=== PATIENT | female | born 2000 | race Caucasian/White ===

== ENCOUNTER 2023-09-02 01:38 | Observation (INO) | payer MEDICAID, SELFPAY ==
--- NOTE | 2023-09-02 02:08 | OBADM ---
This patient, Kayla Yu, admitted to the OB room Labor/Delivery/Recovery 106 for observation. Patient/family oriented to hospital policies and general routines including ID bracelet, bed and alarms, visiting hours, pain management, procedures, bathroom and other care routines, personal items, smoking policy, room service/diet, and visiting hours. Patient/Family are encouraged to report perceived risks to care and to ask questions if they do not understand what they are told or what they should do.
[2023-09-02 02:47] VITALS: BMI 36.3
[2023-09-02 02:48] VITALS: BP 130/81
[2023-09-02 02:51] VITALS: BP 130/81; PULSE 104
--- NOTE | 2023-09-04 14:06 | PM.OBTRLD ---
OB - Triage/Final Diagnosis Visit Information Date of evaluation: 09/02/23 Reason for evaluation: decreased movement Comments/Additional reasons for admission: I have assessed the risk for this patient, Kayla Yu, and determined that she would benefit from observation care.
== END 2023-09-02 02:54 | disposition home or self-care (01) ==
PROVIDERS: Admitting Provider Obstetrics & Gynecology; Visit Provider Obstetrics & Gynecology
DX: O36.8130 Decreased fetal movements, third trimester, not applicable or unspecified (principal); Z3A.32 32 weeks gestation of pregnancy
CPT/HCPCS: 59025; G0378; G0379

== ENCOUNTER 2023-09-05 14:44 | Observation (INO) | payer MEDICAID, SELFPAY ==
[2023-09-05] VITALS (9 sets, daily range): BP systolic 113–117; BP diastolic 64–67; PULSE 87–108; RESP 20; TEMP 36.8; O2SAT 99–100; BMI 41.3
--- NOTE | 2023-09-05 15:20 | OBADM ---
This patient, Kayla Yu, admitted to the OB room 116 for observation. Patient/family oriented to hospital policies and general routines including ID bracelet, bed and alarms, visiting hours, pain management, procedures, bathroom and other care routines, personal items, smoking policy, room service/diet, and visiting hours. Patient/Family are encouraged to report perceived risks to care and to ask questions if they do not understand what they are told or what they should do.
[2023-09-05 15:39] LABS: Appearance Urine Clear (Clear); Bilirubin Urine Negative (Negative); Blood Urine Negative (Negative); Color Urine Yellow (Yellow); Glucose Urine UA Negative (Negative); Ketones Urine Negative (Negative); Leukocyte Esterase Ur Negative LEU/UL (Negative); Nitrate Urine Negative (Negative); Protein Urine Negative (Negative); Urobilinogen Urine 0.2 mg/dL (<2.0); pH Urine 6.5 (5.0-9.0)
[2023-09-05 15:42] LABS: Add Urine Microscopic? NO
--- NOTE | 2023-09-08 10:02 | P.PNOB_ITS ---
OB - Triage/Final Diagnosis Visit Information Date of evaluation: 09/04/23 Reason for evaluation: threatened labor Comments/Additional reasons for admission: I have assessed the risk for this patient, Kayla Yu, and determined that she would benefit from observation care. Evaluation Laboratory results: Laboratory Tests 09/05/23 15:26 Urine Color Yellow Urine Appearance Clear Urine pH 6.5 Ur Specific [place] 1.010 Urine Protein Negative Urine Glucose (UA) Negative Urine Ketones Negative Ur Blood (Man) Negative Urine Nitrate Negative Urine Bilirubin Negative Urine Urobilinogen 0.2 Leukocyte Esterase Rfl Negative
== END 2023-09-05 16:31 | disposition home or self-care (01) ==
PROVIDERS: Admitting Provider Student in an Organized Health Care Education/Training Program; Visit Provider Student in an Organized Health Care Education/Training Program
DX: O47.9 False labor, unspecified (principal); Z3A.33 33 weeks gestation of pregnancy
CPT/HCPCS: 81003; 84112; G0378; G0379

== ENCOUNTER 2023-09-13 12:41 | Outpatient (CLI) | payer MEDICAID, SELFPAY ==
--- NOTE | ~2023-09-13 | US_ITS ---
EXAMINATION: US OB follow up DATE: 09/13/2023 13:11 INDICATION: Encounter for supervision of normal . Assess growth and amniotic fluid ind ex. TECHNIQUE: Real-time ultrasound of the pelvis was performed. The interpreting radiologist was not pre sent for the study. COMPARISON: None. FINDINGS: There is a single living fetus in vertex presentation. The placenta is posterior and not low-lying. The regions of the cervix is obscured by the skull. heart rate is 134 beats per minute (b pm). The amniotic fluid index is 12.8 cm, which is normal (5th%-95%: 8.1-24.8 cm at 34 weeks estimat ed gestational age). The following biometric data were obtained: BPD: 8.4 cm -> 34 weeks 0 days Head circumference: 31.1 cm -> 34 weeks 5 days Abdominal circumference: 30.1 cm -> 34 weeks 1 days Femur length: 6.6 cm -> 34 weeks 1 days These measurements are concordant. Head circumference to abdominal circumference ratio: 1.03 (normal range 0.94-1.11). Estimated weight: 2368 g (+/-) 355 g or 5 lbs. 4 oz. (+/-) 13 oz. IMPRESSION: 1. Single living fetus in vertex presentation with heart rate of 134 bpm. 2. Gestational age by ultrasound of 34 weeks 2 day(s) +/- 2 week(s) 3 day(s) with ultrasound estimate d date of delivery (VARSHA) of 10/23/2023. Estimated weight is 37th percentile by Hadlock criteria when 10/22/2023 is used as the VARSHA. Please correlate with clinical information or earlier ultrasounds for most accurate VARSHA. 3. Normal amniotic fluid index of 12.8 cm. Reviewed, dictated and finalized at location B. IMPRESSION: 1. Single living fetus in vertex presentation with heart rate of 134 bpm. 2. Gestational age by ultrasound of 34 weeks 2 day(s) +/- 2 week(s) 3 day(s) wi th ultrasound estimated date of delivery (VARSHA) of 10/23/2023. Estimated we ight is 37th percentile by Hadlock criteria when 10/22/2023 is used as the VARSHA. Please correlate with clinical information or earlier ultrasounds for most accu rate VARSHA. 3. Normal amniotic fluid index of 12.8 cm.
== END 2023-09-13 12:42 ==
LOC: MICIMG 12:42
PROVIDERS: PCP Student in an Organized Health Care Education/Training Program; Visit Provider Student in an Organized Health Care Education/Training Program
DX: Z34.93 Encounter for supervision of normal pregnancy, unspecified, third trimester (principal); Z3A.34 34 weeks gestation of pregnancy
CPT/HCPCS: 76816

== ENCOUNTER 2023-10-13 17:08 | Outpatient (CLI) | payer OTHER, SELFPAY ==
[2023-10-13 17:52] VITALS: BP 122/73; PULSE 100
== END 2023-10-13 18:00 ==
LOC: ANHOBOP 17:58
PROVIDERS: Visit Provider Student in an Organized Health Care Education/Training Program
DX: O42.90 Premature rupture of membranes, unspecified as to length of time between rupture and onset of labor, unspecified weeks of gestation (principal); Z3A.00 Weeks of gestation of pregnancy not specified
CPT/HCPCS: 59025; 84112

== ENCOUNTER 2023-10-18 06:13 | Inpatient (IN) | payer OTHER, SELFPAY ==
[2023-10-18] VITALS (57 sets, daily range): BP systolic 85–139; BP diastolic 34–118; PULSE 74–160; RESP 16–20; TEMP 36.3–37.7; O2SAT 92–100; BMI 41.8
--- NOTE | 2023-10-18 07:00 | LDADM ---
This patient, Kayla Yu, was admitted to Labor/Delivery/Recovery 107 on 10/18/23 at 06:13. Plans for labor, pain management and were discussed with patient. Patient/family oriented to hospital policies and general routines including ID bracelet, bed and alarms, visiting hours, pain management, procedures, bathroom and other care routines, personal items, smoking policy, room service/diet and guest tray routines, infant security routines, and visiting hours. Patient/Family are encouraged to report perceived risks to care and to ask questions if they do not understand what they are told or what they should do. See OBIX for further documentation.
[2023-10-18 07:03] LABS: Basophils Absolute Auto 0.1 K/mm3 (0.0-0.1); Basophils Percent Auto 0.4 % (0.2-1.2); Eosinophils Absolute Auto 0.3 K/mm3 (0-0.3); Eosinophils Percent Auto 2.9 % (0-4.4); Hematocrit 32.3 % (37.0-47.0); Hemoglobin 10.6 g/dL (12.0-15.0); Immature Granulocyte Absolute 0.12 K/mm3 (0.00-0.031); Lymphocytes Absolute Auto 2.27 K/mm3 (0.9-3.2); Lymphocytes Percent Auto 19.4 % (18.3-44.2); Mean Corpuscular HGB Conc 32.8 g/dl (32-36); Mean Corpuscular Hemoglobin 28.6 pg (26-34); Mean Corpuscular Volume 87.1 fl (80-100); Mean Platelet Volume 9.6 fl (7.4-10.4); Monocytes Absolute Auto 0.7 K/mm3 (0.1-0.6); Monocytes Percent Auto 6.3 % (2.6-8.5); Neutrophils Absolute Auto 8.2 K/mm3 (1.3-6.7); Platelet Count Result 315 k/mm3 (150-375); Red Blood Count 3.71 M/mm3 (4.2-5.4); Red Cell Distribution Width 13.5 % (11.5-14.5); White Blood Count 11.7 K/mm3 (4.5-10.0)
[2023-10-18] MEDS: LACTATED RINGERS 1,000 ML 125 ML IV CONT ×2 (07:32→09:30)
[2023-10-18] MEDS: OXYTOCIN 30 UNITS/NS 500 ML 30 UNITS/500 ML BAG IV CONT (07:33)
--- NOTE | 2023-10-18 07:34 | P.HPUP_ITS ---
History and Physical Update Update Date/Time: 10/18/23 07:34 History and Physical has been reviewed, including an updated exam of the patient. There are NO changes in the patient's condition. Risks, benefits, and alternatives have been discussed and questions answered. Patient agrees to proceed with procedure. A/P: -Transfer of care at 33w from [place] -Bipolar disorder- no meds -Asthma- moderate- albuterol/budesonide -Cardiac palpitations- pt had EKG/cardiology consult done prior to transfer, records reveiwed -h/o 34w delivery 2/2 PPROM admit to L&D routine admission orders Rh + GBS neg continuous EFM plan for AROM and pitocin
--- NOTE | 2023-10-18 08:50 | WPDANESEPP ---
Anes - Eval Pre Procedure Procedure: Labor epidural Date/Time: 10/18/23 08:50 Surgeon: Caesar Preop Diagnosis: Pain during labor Pre Op Diagnosis: Induction of Labor Patient Data Age: 22 Gender: F Height: 1.52 m Weight: 97 kg Last Vital Signs Temp 36.3 C L 10/18/23 07:30 Pulse 102 H 10/18/23 08:15 BP 139/74 10/18/23 08:15 O2 Del Method Room Air 10/18/23 07:00 Allergies Allergy/AdvReac Type Severity Reaction Status Date / Time amoxicillin Allergy Severe Anaphylactic Verified 10/12/23 10:16 Shock risperidone [From Risperdal] Allergy Mild Hives Verified 10/12/23 10:16 varenicline [From Chantix] AdvReac Other Verified 10/12/23 10:16 Home Medications Medication Instructions Recorded Confirmed Type albuterol 90 mcg-budesonide 80 2 inh inhalation TID PRN Shortness 09/03/23 10/12/23 History mcg/actuation HFA aerosol inhaler Of Breath ferrous sulfate 325 mg (65 mg 325 mg PO DAILY 09/03/23 10/12/23 History iron) tablet vits no.126-ferrous fum 1 tablet PO DAILY 09/03/23 10/12/23 History 28 mg iron-folic acid 800 mcg tablet (Classic ) albuterol sulfate 90 mcg/actuation 1 inh inhalation Q4H 09/06/23 10/12/23 History aerosol inhaler (ProAir HFA) cetirizine 10 mg capsule (Zyrtec) 10 mg PO DAILY PRN Wheezing 09/06/23 10/12/23 History Laboratory Tests 10/18/23 06:41 WBC 11.7 H K/mm3 (4.5-10.0) RBC 3.71 L M/mm3 (4.2-5.4) Hgb 10.6 L g/dL (12.0-15.0) Hct 32.3 L % (37.0-47.0) MCV 87.1 fl (80-100) MCH 28.6 pg (26-34) MCHC 32.8 g/dl (32-36) RDW 13.5 % (11.5-14.5) Plt Count 315 k/mm3 (150-375) MPV 9.6 fl (7.4-10.4) Immature Gran % (Auto) 1.0 H % (0-0.5) Neut % (Auto) 70.0 % (45.5-73.1) Lymph % (Auto) 19.4 % (18.3-44.2) [place] % (Auto) 6.3 % (2.6-8.5) Eos % (Auto) 2.9 % (0-4.4) Baso % (Auto) 0.4 % (0.2-1.2) Lymph # (Auto) 2.27 K/mm3 (0.9-3.2) [place] # (Auto) 0.7 H K/mm3 (0.1-0.6) Eos # (Auto) 0.3 K/mm3 (0-0.3) Baso # (Auto) 0.1 K/mm3 (0.0-0.1) Abs Immat Gran (auto) 0.12 H K/mm3 (0.00-0.031) Absolute Neuts (auto) 8.2 H K/mm3 (1.3-6.7) Absolute Nucleated RBC 0.000 K/mm3 (0.0-0.012) Nucleated RBC % 0.0 % (0.0-0.2) RPR Pending Blood Type A Positive Antibody Screen Pending Patient hx anesthesia problems: none Family hx anesthesia problems: none Results Review: All pre-operative results and documents have been reviewed as part of the pre-operative evaluation. [facility] Past Medical History Medical History Asthma Prior with demise PTSD (post-traumatic stress disorder) Surgical History Surgical History H/O abdominal surgery H/O: knee surgery Family History Family History Father Bladder cancer Heart disease Sibling Kidney disease Social History Social History Smoking status: Current some day smoker Smokeless tobacco user: other Second hand tobacco smoke exposure: Yes Alcohol intake: never Substance use: current Do You Feel Safe in your Home?: Yes Lack of Transportation: No Lack of Food: Never True Current Housing: I Have Housing Concerned About Future Housing: No Difficulty Paying Gas/Electric Bills: No Difficulty Paying for Meds: No Currently Unemployed: No Education: High School Diploma/GED Difficulty w/ Childcare or Family Care: No Living arrangements: with family Occupation/Education: unemployed Gender identity (if verbalized by the patient): Female Sexual Orientation (if Verbalized by the Patient): Straight or Heterosexual Spiritual care concerns: No Exam Day of Procedure 10/18/23 08:50 Pat
[2023-10-18] MEDS: miSOPROStol 200 MCG TABLET 1000 MCG (10:00)
[2023-10-18] MEDS: OXYTOCIN 30 UNITS/NS 500 ML 30 UNITS/500 ML BAG 125 UNITS IV CONT (10:21)
[2023-10-18] MEDS: METHYLERGONOVINE MALEATE 0.2 MG/ML VIAL IM (10:40)
--- NOTE | 2023-10-18 11:12 | P.PCNOB_ITS ---
OB - Vaginal Delivery Note Procedure Delivery date: 10/18/23 Induction method: Per Pitocin Protocol Delivery augmentation: Rupture of Membranes Delivery monitor: External FHT and External Uterine Route of delivery: Episiotomy description: None Laceration Description: Perineal - 2nd Degree and Superficial Delivery repair: vicryl Specimen: No Quantitative Blood Loss (ml): 300 Anesthesia type: Epidural Disposition: Floor Complications: No immediate complications Narrative: Patient pushed for a spontaneous vaginal delivery. A nuchal x 1 was noted and delivered through. The fetus was delivered atraumatically and placed on the maternal abdomen. The cord was clamped and cut after 1 minute of life. The cord was double clamped and cut and a segment of cord was collected for cord gases. Cord blood was collected for blood type and Coomb's testing. The placenta delivered spontaneously and was noted to be intact. The perineum was inspected and a second degree perineal laceration was noted. The laceration was repaired wiht 3-0 vicryl in a running fashion. There was a small amount of brisk bleeding after delivery. Pt was given 1000 mcg of cytotec [place]. [place] Baby Date of : 10/18/23 Weeks of gestation at delivery: 39 Infant gender: Male presentation: vertex position: Right Occiput Anterior Placenta delivery description: Spontaneous Cord Vessel Description: 3 Vessels and Nuchal Cord score one minute: 8 score five minutes: 9
[2023-10-18] MEDS: COSYNTROPIN 0.25 MG/ML VIAL 1 MG IV PUSH (11:34)
[2023-10-18] MEDS: BENZOCAINE 20% AER SPR (*SP) 56 GM CAN 1 SPRAY TOPICAL (13:00)
[2023-10-18] MEDS: WITCH HAZEL 40 PADS 1 PAD TOPICAL (13:00)
--- NOTE | 2023-10-18 13:40 | OBPPTRN ---
1311-Patient transferred to post room #291 via wheelchair. Support person present. Oriented to unit, room, information board, rooming in, admission packet and security measures. Patient verbalizes understanding.
[2023-10-18] MEDS: IBUPROFEN 600 MG TABLET PO (14:23)
[2023-10-18 16:45] LABS: Rapid Plasma Reagin Non-Reactive (NonReactive)
--- NOTE | 2023-10-18 18:24 | WPDANESPN ---
Anes - Prog Note Post-Op Date/Time: 10/18/23 18:24 Cardiovascular status: normal Respiratory status: normal Airway patency: baseline Mental status: baseline Post-Op hydration status: normal Vital Signs: Last Vital Signs Temp 37.7 C H 10/18/23 13:15 Pulse 97 10/18/23 13:15 Resp 16 10/18/23 13:15 BP 123/62 10/18/23 13:15 Pulse Ox 100 10/18/23 13:15 O2 Del Method Room Air 10/18/23 07:00 Pain Score (VAS): Called to assess patient for spinal NEGRO after wet tap during epidural placement. When entering pt room all lights on and pt sitting straight up in bed chatting on phone, holding baby. I asked pt to describe her NEGRO. Pt stated that NEGRO was pretty bad but not as bad as it was early in the afternoon, mostly right frontal radiating to the base of her skull. Pt is eating and drinking well. Smiling and talkative. Discussed plan to treat her NEGRO conservatively overnight, and reassess in the morning. Pt was given Cosyntropin at 1134. Pt agreed with the plan. We will assess her status in the morning. DJP aware. I/O: Intake & Output 10/18/23 10/18/23 10/18/23 07:59 15:59 23:59 Intake Total 245.8 Output Total 850 Balance -604.2 Laboratory Tests 10/18/23 06:41 10/18/23 06:41 WBC 11.7 H RBC 3.71 L Hgb 10.6 L Hct 32.3 L MCV 87.1 MCH 28.6 MCHC 32.8 RDW 13.5 Plt Count 315 MPV 9.6 Immature Gran % (Auto) 1.0 H Neut % (Auto) 70.0 Lymph % (Auto) 19.4 [place] % (Auto) 6.3 Eos % (Auto) 2.9 Baso % (Auto) 0.4 Lymph # (Auto) 2.27 [place] # (Auto) 0.7 H Eos # (Auto) 0.3 Baso # (Auto) 0.1 Abs Immat Gran (auto) 0.12 H Absolute Neuts (auto) 8.2 H Absolute Nucleated RBC 0.000 Nucleated RBC % 0.0 RPR Non-reactive Blood Type A Positive Antibody Screen Negative Patient Feedback: Patient satisfied with anesthetic care.
[2023-10-19 04:10] LABS: Hematocrit 27.6 % (37.0-47.0); Hemoglobin 8.8 g/dL (12.0-15.0)
[2023-10-19] MEDS: IBUPROFEN 600 MG TABLET PO (04:15)
[2023-10-19 07:40] VITALS: BP 108/74; PULSE 92; RESP 18; TEMP 36.6; O2SAT 99
--- NOTE | 2023-10-19 07:45 | PM.OBDSVD ---
DS: Admitting Diagnosis Discharge Date 10/19/23 Admitting Diagnosis intrauterine at term DS: Discharge Diagnosis Discharge Diagnosis (1) Normal vaginal delivery: Code(s): O80 - Encounter for full-term uncomplicated delivery Status: Acute OB - DS: Summary OB Procedures : None OB Procedures Intrapartum: Spontaneous Vag Delivery OB Procedures: : None Peripartum Data Laceration Description: Perineal - 2nd Degree and Superficial Episiotomy description: None Status at Discharge Functional status at discharge: independent ambulation Overall status at discharge: patient is back to baseline Time Spent with Patient Time attestation: Total time spent providing and/or coordinating discharge services: Time spent: Less than 30 minutes Exam Const: General: comfortable and no acute distress Resp: Effort & Inspection: normal respiratory effort Auscultation: clear to auscultation bilaterally Cardio: Rate: regular rate GI: GI Palp: Yes Soft to palpation Auscultation: normal bowel sounds Other: Fundus firm below umbilicus Psych: Appearance: grossly normal Mental Status: mental status grossly normal Affect: normal affect DS: Data Data Completed and Pending Labs on day of discharge: Labs from last 24 hours 10/19/23 10/18/23 04:03 06:41 Hgb 8.8 L Hct 27.6 L RPR Non-reactive Blood Type A Positive Antibody Screen Negative Discharge Plan Discharge Discharging Clinician: Christiano Maynard Patient Disposition: Home, Self-Care Activity: as tolerated and pelvic rest Diet: regular Patient Instructions: Antibiotic Form, Vaginal Delivery (DC) Stand Alone Forms: General Discharge Information Follow-up/Referrals: Christiano Maynard MD [Physician] - 4 Weeks Discharge Medications: Continued ferrous sulfate 325 mg (65 mg iron) tablet 325 mg PO DAILY Classic 28 mg iron- 800 mcg tablet 1 tablet PO DAILY albuterol-budesonide 90-80 mcg/actuation HFA aerosol inhaler 2 inh inhalation TID PRN (Reason: Shortness Of Breath) Zyrtec 10 mg capsule 10 mg PO DAILY PRN (Reason: Wheezing) albuterol sulfate [ProAir HFA] 90 mcg/actuation HFA aerosol inhaler 1 inh inhalation Q4H Date of admission: 10/18/23 06:13 Primary Care Provider: 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
[2023-10-19] MEDS: POLYSACCHARIDE IRON COMPLEX 150 MG CAPSULE PO (08:59)
[2023-10-19] MEDS: DOCUSATE SODIUM 100 MG CAPSULE PO (08:59)
[2023-10-19] MEDS: MULTIVIT/MIN/PREN/FOL AC/IRON TABLET 1 TAB PO (08:59)
[2023-10-19] MEDS: ACETAMINOPHEN/BUTALBITAL/CAFFEINE 325-50-40 MG TABLET (FIORICET) PO ×2 (09:00→13:15)
--- NOTE | 2023-10-19 09:09 | WPDANLDPN2 ---
Anes-Prog Note L&D Date/Time: 10/19/23 09:09 Comfortable throughout: labor and delivery Neuraxial method: epidural Epidural/Spinal procedure site: clean & non-tender (removed epidural catheter. ) Neuro status: Neuro function grossly intact. Cardiovascular status: normal Respiratory status: normal Airway patency: baseline Mental status: baseline Post-Op hydration status: normal Vital Signs: Last Vital Signs Temp 36.6 C 10/19/23 07:40 Pulse 92 10/19/23 07:40 Resp 18 10/19/23 07:40 BP 108/74 10/19/23 07:40 Pulse Ox 99 10/19/23 07:40 O2 Del Method Room Air 10/18/23 07:00 Pain score (VAS): 610 Post-procedural complaints: other (possible PDPH) Patient feedback: Patient satisfied with anesthetic care.patient c/o headache that started about 4 hours after arriving to unit. she presents with atypical symptoms. she is able to drink plenty of fluid. she has had caffeine. she is getting tylenol and motrin as needed. she was given cosyntropine at 1134 and reported good pain relief for 4 hours. her pain does not get worse with sitting up, but she does have neck stiffness. ordered fioricet PRN as she wishes to conitunue with conservative treatment. she was in good spirits.
--- NOTE | 2023-10-19 10:24 | PC.NURSE ---
904- Report received that mother wants to attempt on her own, declines at this time and will call if assistance is requested. 914 Introductions were made. services offered and name written on the communication board for patient to call to request assistance with latching. 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 Reminded mother there's to be no pain with latching, no discoloration (redness) on the breast/nipple and how to protect the milk supply and encourage wakefulness, bonding and calming with [id number]. Mother has a bottle out to feed infant and has a pump in the room. Instructions given on cleaning, care, usage, that there should be no pain, pumping schedule for milk production, collection, and storage of human milk. Patient was encouraged to call for the next pumping session to be assessed for correct placement, flange size and reminded to pump for comfort and nipple stretching/stimulation for adequate milk production every 3 hours (8 times in 24 hours) 1-2 times at night. Mother voiced understanding of the education shared along with mom/baby guide and the pump measurement, flange fit handout for additional resource information. Reported to the Primary RN.
--- NOTE | 2023-10-19 13:50 | PC.NURSE ---
1340- Insurance [employer] pump [id number] given to patient and reviewed with resources.
[2023-10-20 10:42] VITALS: BP 116/75; PULSE 99; RESP 18; TEMP 36.8; O2SAT 99
== END 2023-10-19 15:11 | disposition home or self-care (01) | DRG 560 ==
LOC: ANHLDR 07:30 → ANHOB2 13:13
PROVIDERS: Admitting Provider Student in an Organized Health Care Education/Training Program; Visit Provider Student in an Organized Health Care Education/Training Program
DX: O99.52 Diseases of the respiratory system complicating childbirth (principal); J45.909 Unspecified asthma, uncomplicated; O70.1 Second degree perineal laceration during delivery; O69.81X0 Labor and delivery complicated by cord around neck, without compression, not applicable or unspecified; Z3A.39 39 weeks gestation of pregnancy; Z37.0 Single live birth
CPT/HCPCS: 36415; 85014; 85018; 85025; 86592; 86850; 86900; 86901; A9270; J0834; J2210; J2590; J2795; J7120

== ENCOUNTER 2023-10-23 12:19 | Outpatient (CLI) | payer OTHER, SELFPAY ==
[2023-10-23 12:35] VITALS: BP 104/65; PULSE 86; PULSE 90; O2SAT 99
[2023-10-23 12:40] VITALS: PULSE 102; PULSE 89; O2SAT 93; O2SAT 98
[2023-10-23 12:45] VITALS: BP 105/59; PULSE 81; PULSE 87; O2SAT 100
[2023-10-23 12:50] VITALS: PULSE 84; O2SAT 100
--- NOTE | 2023-10-23 13:04 | WPDANLDPN2 ---
Anes-Prog Note L&D Date/Time: 10/23/23 13:04 Neuro status: Neuro function grossly intact. Cardiovascular status: normal Respiratory status: normal Airway patency: baseline Mental status: baseline Post-Op hydration status: normal Vital Signs: Last Vital Signs Pulse 87 10/23/23 12:45 BP 105/59 L 10/23/23 12:45 Pulse Ox 100 10/23/23 12:50 Pain score (VAS): 2 Post-procedural complaints: none Patient feedback: Patient satisfied with anesthetic care. patient came in for a consultation for blood patch after known wet tap. patient came walking into hospital on own and presents laughing, sitting up, lights on and otherwise healthy. patient was picking up her toddler child and not complaining of pain. Upon interview patient said she would have a mild headache that was tolerable and no other symptoms. Her head hurt worse if she went chin to chest but also tolerable. She said the fiorcet helped and has been drinking water. At this time patient does not think the headache is bad enough to constitute a blood patch procedure. I explained the need to lay afterwards for 1-2 hours and take it easy the rest of the day after blood patch. She said if her headache persisted she would like to come wednesday for blood patch as she has help with her children and would be able to rest, if she needs to come back. As of now she plans to continue conservative treatment and does not want blood patch.
--- NOTE | 2023-10-23 13:12 | PC.NURSE ---
This RN called and spoke with Dr. Sheehan regarding pt's decision to not proceed with blood patch. MD verbalized understanding, discharge orders given. Would like patient to take fioricet every 6 hours (instead of 4) with ibuprofen. Would also like pt to continue to hydrate well. RN repeated orders back to confirm.
== END 2023-10-23 13:15 | disposition home or self-care (01) ==
LOC: ANHOBOP 12:26 → ANHOBPP 10-28 06:39
PROVIDERS: Visit Provider Student in an Organized Health Care Education/Training Program
DX: G97.1 Other reaction to spinal and lumbar puncture (principal)
CPT/HCPCS: 99199